=== PATIENT | female | born 1975 | race Caucasian/White ===

== ENCOUNTER → 2017-01-28 | Outpatient (CLI) | payer BC ==
--- NOTE | 2017-01-29 09:48 | Diagnostic Imaging Report ---
Bilateral screening mammogram 2D views with tomosynthesis The current study was also evaluated with a Computer Aided Detection (CAD) system. Indication: Screening. No current complaints stated on the questionnaire. COMPARISON: None. This is a baseline exam. FINDINGS: The breasts are composed of heterogeneously dense parenchyma which would decrease mammographic sensitivity. There is segmental distribution of punctate calcifications seen in a somewhat symmetric distribution within the upper outer aspect of the breasts. No underlying focal mass is identified. IMPRESSION: Likely benign upper outer breast calcifications are seen bilaterally. Focal compression magnification views for better evaluation are recommended. BI-RADS 0. ACR BI-RADS Category 0: Incomplete. (Needs additional imaging evaluation). Result letter will be mailed to the patient. Note: At least 10% of breast cancer is not imaged by mammography. Dictated by: Dictated on workstation # [id number]
== END ==
LOC: RAD 13:13
PROVIDERS: ATTEND Obstetrics & Gynecology
DX: Z12.31 Encounter for screening mammogram for malignant neoplasm of breast (principal); R92.1 Mammographic calcification found on diagnostic imaging of breast
CPT/HCPCS: 77067

== ENCOUNTER → 2017-02-05 | Outpatient (CLI) | payer BC ==
--- NOTE | 2017-02-05 08:19 | Diagnostic Imaging Report ---
Bilateral diagnostic mammogram with tomography. CAD is utilized. INDICATION: Bilateral calcifications in the upper outer aspect of the breasts seen. FINDINGS: The compression magnification views of the upper outer aspect of each breast demonstrate numerous calcifications in the upper outer aspect. Many of these calcifications demonstrate layering which may relate to milk of calcium. This is particularly noted on the right side. The symmetric appearance is in favor of benign etiology as well. IMPRESSION: Numerous calcifications in the upper outer aspect of each breast are favored to be benign. Ultrasound evaluation pending. ACR BI-RADS Category 0: Incomplete. (Needs additional imaging evaluation). Result letter will be mailed to the patient. Note: At least 10% of breast cancer is not imaged by mammography. Dictated by: Dictated on workstation # [id number]
--- NOTE | 2017-02-05 19:58 | Diagnostic Imaging Report ---
EXAMINATION: Bilateral breast ultrasound. INDICATION: Calcification in upper outer aspect of each breast. FINDINGS: The breast parenchyma appears unremarkable with no focal lesion seen in the four quadrants or retroareolar region. IMPRESSION: Negative study. The calcifications in the upper outer aspect of each breast are probably benign. Six month followup bilateral mammogram evaluation is recommended to ensure stability. ACR BI-RADS Category 3: Probably benign findings. Result letter will be mailed to the patient. Note: At least 10% of breast cancer is not imaged by mammography. Dictated on workstation # [id number]
== END ==
LOC: RAD 07:42
PROVIDERS: ATTEND Obstetrics & Gynecology
DX: N63.11 Unspecified lump in the right breast, upper outer quadrant (principal); N63.21 Unspecified lump in the left breast, upper outer quadrant
CPT/HCPCS: 77066

== ENCOUNTER → 2018-11-09 | Outpatient (CLI) | payer BC ==
--- NOTE | 2018-11-09 16:55 | Diagnostic Imaging Report ---
PROCEDURE: US Non-ob pelvis comp/trans. TECHNIQUE: Multiple realtime grayscale images were obtained of the pelvis in various projections endovaginally. Transabdominal imaging was also performed. INDICATION: Dysmenorrhea. FINDINGS: Uterus measures 8.0 x 5.3 x 4.3 cm. Endometrium measures 9 mm in thickness. There is a small oval fluid collection within the endometrial cavity that measures 5 mm in diameter. Myometrium and endometrium otherwise unremarkable. Adnexa are unremarkable. IMPRESSION: Small fluid collection within the endometrial cavity. Gestational sac would be unlikely but clinical correlation recommended. Dictated by: Dictated on workstation # [id number]
--- NOTE | 2018-11-10 09:10 | Diagnostic Imaging Report ---
Indication: Routine screening. Comparison is made with prior mammogram from 01/28/2017. 2-D and 3-D bilateral screening mammography was performed with CAD. Both breasts remain heterogeneously dense, limiting the sensitivity of mammography. There are innumerable microcalcifications throughout both breasts, limiting evaluation. Calcifications are indeterminate. Calcifications appear to be segmental in primarily upper outer aspects of both breasts. These do appear to be more numerous than the right breast however. No mass is seen. Axillae are unremarkable. Impression: Innumerable microcalcifications in both breasts, similar to a study from 2017. Stability of microcalcifications does not necessarily indicate benignity when dealing with DCIS. Breast MRI may be useful for further evaluation in light of marked breast density and innumerable microcalcifications. BI-RADS category 0. ACR BI-RADS Category 0: Incomplete. (Needs additional imaging evaluation). Result letter will be mailed to the patient. Note: At least 10% of breast cancer is not imaged by mammography. Dictated by: Dictated on workstation # [id number]
== END ==
LOC: RAD 15:31
PROVIDERS: ATTEND Obstetrics & Gynecology
DX: Z12.31 Encounter for screening mammogram for malignant neoplasm of breast (principal); R92.0 Mammographic microcalcification found on diagnostic imaging of breast; N85.8 Other specified noninflammatory disorders of uterus; N94.6 Dysmenorrhea, unspecified; N92.0 Excessive and frequent menstruation with regular cycle
CPT/HCPCS: 76830; 76856; 77067

== ENCOUNTER → 2018-12-13 | Outpatient (CLI) | payer BC ==
--- NOTE | 2018-12-13 16:22 | Diagnostic Imaging Report ---
PROCEDURE: US Non-ob pelvis comp/trans. TECHNIQUE: Multiple realtime grayscale images were obtained of the pelvis in various projections endovaginally. Transabdominal imaging was also performed. INDICATION: Irregular menses. COMPARISON: Correlation is made with prior ultrasound from 11/09/2018. FINDINGS: The uterus measures 9.1 x 5.3 x 4.2 cm. No myometrial mass is detected. Endometrium is thickened at 18 mm. No endometrial fluid is identified on today's study. Right ovary measures 2.4 x 2.1 x 1.6 cm and the left ovary measures 2.5 x 1.9 x 1.8 cm. Ovaries contain small follicles. There is blood flow to both ovaries. No adnexal mass or free fluid is seen. IMPRESSION: 1. Thickened endometrium of 18 mm. Previously noted endometrial fluid is no longer visualized. 2. No other significant abnormality is detected. Dictated by: Dictated on workstation # [id number]
== END ==
LOC: RAD 15:28
PROVIDERS: ATTEND Obstetrics & Gynecology
DX: N92.6 Irregular menstruation, unspecified (principal); R93.89 Abnormal findings on diagnostic imaging of other specified body structures
CPT/HCPCS: 76830; 76856

== ENCOUNTER → 2021-01-29 | Outpatient (CLI) | payer BC ==
[~2021-01-29] MED LIST: NORE0.3520 PO; ONDN4T PO; TRAN650T5 PO; UBRO50TA PO
--- NOTE | 2021-01-29 15:07 | Diagnostic Imaging Report ---
PROCEDURE: Pelvic complete, transabdominal and transvaginal sonogram. Limited pelvic doppler. TECHNIQUE: Multiple real-time grayscale images were obtained of the pelvis in various projections transabdominally and transvaginally. Limited pelvic duplex images were obtained. HISTORY: ABN UTERINE BLEEDING COMPARISON: 12/13/2018. FINDINGS: Uterus: The uterus is anteverted and measures 9.4 x 4.5 x 6.1 cm. The myometrium is homogeneous without fibroids. Endometrium: The endometrium is increased in thickness and measures 1.9 cm. Suggestion of mild fluid within the endometrial cavity with endometrial vascularity. There is suggestion of a feeding vessel seen on image 63. Adnexa: Right ovary demonstrates a normal physiologic appearance with a 2.4 cm follicle. Left ovary is nonvisualized secondary to overlying bowel gas. The right ovary measures 2.4 x 2.6 x 2.1 cm. Duplex images reveal normal vascular flow to the right ovary. Other: There is no free fluid within the pelvis. IMPRESSION: 1. Redemonstrated thickened appearance of the endometrium with endometrial fluid and vascularity. Suggestion of a feeding vessel within the endometrium which can be seen with an endometrial polyp or submucosal fibroid. Less likely differential consideration could include a neoplastic or infectious etiology although this is felt to be less likely given the persistence of endometrial thickening since 2019. Dictated by: Dictated on workstation # [id number]
== END ==
LOC: RAD 10:21
PROVIDERS: ATTEND Obstetrics & Gynecology
DX: N93.9 Abnormal uterine and vaginal bleeding, unspecified (principal); E55.9 Vitamin D deficiency, unspecified
CPT/HCPCS: 76830; 76856

== ENCOUNTER 2021-01-31 11:28 | Day surgery (SDC) | payer BC ==
[2021-01-31] VITALS (10 sets, daily range): BP systolic 97–153; BP diastolic 62–99
[~2021-01-31] VITALS: Ht 152 cm; Wt 80.0 kg
[2021-01-31] MEDS ORDERED: ceFAZolin 2 GM IV Premixed 50 ML IV ONE (11:45)
[2021-01-31] MEDS: LACTATED RINGERS 1,000 ML IV PRN ×2 (12:00→13:45)
[2021-01-31] MEDS ORDERED: ONDANSETRON 4 MG/2 ML (SDV) Z0FRAN ONE (12:48)
[2021-01-31] MEDS ORDERED: proPOfol 200 MG/20 ML (DIPRIVAN) VIAL IV ONE (12:48)
[2021-01-31] MEDS ORDERED: fentaNYL INJ 100 MCG/2 ML AMP ONE (12:48)
[2021-01-31] MEDS ORDERED: LIDOCAINE PF 2% 5 ML (XYLOCAINE) VIAL ONE (12:48)
[2021-01-31] MEDS ORDERED: MIDAZOLAM 2 MG/2 ML (VERSED) VIAL ONE (12:48)
[2021-01-31] MEDS ORDERED: NORE0.3520 PO (12:53)
[2021-01-31] MEDS ORDERED: TRAN650T5 PO (12:55)
--- NOTE | 2021-01-31 12:55 | Progress Note-Pre Operative ---
Pre-Operative Progress Note H&P Reviewed The H&P was reviewed, patient examined and no changes noted. Date Seen by Provider: Jan 31, 2021 Time Seen by Provider: 12:40 Date H&P Reviewed: Jan 31, 2021 Time H&P Reviewed: 12:40 Pre-Operative Diagnosis: abnormal uterine bleeding, thickened endometrium RASHEED NICK DO Jan 31, 2021 12:55
[2021-01-31] MEDS ORDERED: ONDN4T PO (12:56)
[2021-01-31] MEDS ORDERED: UBRO50TA PO (12:58)
[2021-01-31] MEDS ORDERED: KETOROLAC 30 MG/ML VIAL ONE (13:53)
[2021-01-31] MEDS ORDERED: SEVOFLURANE (ULTANE) 15 ML INHAL SOLN ONE (14:12)
[2021-01-31] MEDS ORDERED: morphine INJ 10 MG/ML 1ML (SYR OR VIAL) IVP ONE (14:15)
[2021-01-31] MEDS ORDERED: ONDANSETRON 4 MG/2 ML (SDV) Z0FRAN IVP PRN (14:15)
--- NOTE | 2021-01-31 14:33 | Anesthesia-General Post-Op ---
General Patient Condition Mental Status/LOC: Same as Preop Cardiovascular: Satisfactory Nausea/Vomiting: Absent Respiratory: Satisfactory Pain: Controlled Complications: Absent Post Op Complications Complications None Follow Up Care/Instructions Patient Instructions None needed. Anesthesia/Patient Condition Patient Condition Patient is doing well, no complaints, stable vital signs, no apparent adverse anesthesia problems. ROWENA CHAVEZ DO Jan 31, 2021 14:33
--- NOTE | 2021-02-27 08:17 | Operative Report ---
Operative Report Date of Procedure/Surgery Jan 31, 2021 Surgeon (s) RASHEED NICK DO Occupational Therapy Aides Teacher (s): NA Post-Operative Diagnosis Thickened endometrium, abnormal uterine bleeding polypoid tissue Procedure Performed hysteroscopy, dilation and curettage, Emilia endometrial ablation Description of Procedure Anesthesia Type: General Estimated blood loss (mL): minimal Specimen(s) collected/removed endometrial curettings Description of the Procedure The [employer] system was down when this operation was done and the written report has been lost or misplaced. This is a duplicate With informed consent the patient was taken to the operating room where general anesthesia was found to be adequate. She was then prepped and draped in the usual sterile fashion, in the dorsolithotomy position. The bladder was drained of clear, yellow urine with a straight catheter. A speculum was placed in the vagina and the cervix was grasped with a tenaculum. There was blood and small clots in the vagina. The cervix was gently dilated with Huan dilators and then a hysteroscope was done revealing an abundant amount of polypoid appearing tissue. The scope was removed and a curettage was then done to thin the lining and obtain tissue for pathology. I then took measurements for the ablation and inserted the Eimlia device. The compliance test was begun and completed. Once this was completed the device enabled and the ablation was completed after 120 seconds. I then removed the device and the instruments from the vagina. There was some bleeding from the tenaculum site and this was controlled with pressure. The patient was now awakened and taken to recovery in a stable condition. Sponge and instrument counts were correct times two. Findings of the Procedure abundant polypoid and proliferative tissue Allergies and Home Medications Allergies Coded Allergies: No Known Drug Allergies (Unverified , 01/30/21) Patient Home Medication List Home Medication List Reviewed: Yes Ondansetron HCl (Zofran) 4 Mg Tab, 4 MG PO, (Reported) Entered as Reported by: SHAINA CABALLERO on 01/31/21 1256 Last Action: Last Taken Edited Ubrogepant (Ubrelvy) 50 Mg Tablet, 50 MG PO, (Reported) Entered as Reported by: SHAINA CABALLERO on 01/31/21 1258 Last Action: New Order RASHEED NICK DO Feb 27, 2021 08:17
== END 2021-01-31 17:23 ==
LOC: SDC 11:28
PROVIDERS: ATTEND Obstetrics & Gynecology
DX: R93.89 Abnormal findings on diagnostic imaging of other specified body structures (principal); N93.9 Abnormal uterine and vaginal bleeding, unspecified; N92.0 Excessive and frequent menstruation with regular cycle; E55.9 Vitamin D deficiency, unspecified; G43.909 Migraine, unspecified, not intractable, without status migrainosus; Z79.899 Other long term (current) drug therapy; Z80.0 Family history of malignant neoplasm of digestive organs; Z82.49 Family history of ischemic heart disease and other diseases of the circulatory system
CPT/HCPCS: 84703; 87081; 88305

== ENCOUNTER → 2021-08-28 | Outpatient (CLI) | payer BC ==
--- NOTE | 2021-08-28 11:26 | Diagnostic Imaging Report ---
PROCEDURE: US Non-ob pelvis comp/trans. TECHNIQUE: Multiple realtime grayscale images were obtained of the pelvis in various projections endovaginally. Transabdominal imaging was also performed. INDICATION: Abdominal pain. COMPARISON: Exam compared to 01/29/2021. FINDINGS: Uterus measures 9 cm. The endometrium is 9 mm in thickness. Endometrial and myometrial echotexture pattern appeared homogeneous and normal. There is resolution of the previous heterogeneous hypervascularized endometrial thickening. No abnormal endometrial color Doppler blood flow today. Ovaries are unremarkable. A left follicular cyst is 1.3 cm maximal. There is no adnexal torsion. There is no free fluid. IMPRESSION: Normal exam at follow-up. Normal appearance of the uterus, endometrium, and myometrium. No abnormal color Doppler blood flow. Dictated by: Dictated on workstation # [id number]
== END ==
LOC: RAD 10:06
PROVIDERS: ATTEND Obstetrics & Gynecology
DX: R10.9 Unspecified abdominal pain (principal)
CPT/HCPCS: 76830; 76856